=== PATIENT | male | born 1950 | race Caucasian/White ===

== ENCOUNTER → 2017-03-19 | Day surgery (SDC) | payer MEDICARE, OTHER ==
[~2017-03-19] MED LIST: AMIO200T; ASA; ATOR10TA69; CARV6.2548; CLON0.5T4; DOCU-138; FERR325T30; FURO80TA87; OXYC5TAB84; SERT25TA74; WARF1TAB; [UNRECOGNIZED DRUG - CODE]
== END | disposition home or self-care (01) ==
LOC: RAD 13:02
DX: R59.0 Localized enlarged lymph nodes (principal)
CPT/HCPCS: 38505; 76942; 88305

== ENCOUNTER → 2017-06-15 | Day surgery (SDC) | payer OTHER ==
[~2017-06-15] MED LIST changes: +LIDOCAINE HCL 1% 20ML VIAL (Pyxis) INJ ONE; +OXYC-579; -OXYC5TAB84; +SODIUM BICARBONATE 4.2% 5 MEQ/10 ML DISP.SYRIN IV ONE
== END ==
LOC: RAD 09:52
DX: R59.0 Localized enlarged lymph nodes (principal)
CPT/HCPCS: 38505; 76942; 88172; 88173; J3490